=== PATIENT | male | born 1960 | race Caucasian/White ===

== ENCOUNTER → 2020-12-14 08:54 | Outpatient (CLI) | payer OTHER, SELFPAY ==
[2020-12-14 10:23] LABS: Alanine Aminotransferase 23 IU/L (<50); Albumin 4.3 g/dL (3.5-5.0); Albumin Globulin Ratio 1.4 (1.0-2.8); Alkaline Phosphatase 69 U/L (38-126); Aspartate Aminotransferase 29 IU/L (17-59); Bilirubin Total 0.6 mg/dL (0.2-1.3); Blood Urea Nitrogen 16 mg/dL (9-20); C-Reactive Protein Quant < 0.5 mg/dL (<1.0); Calcium 9.1 mg/dL (8.4-10.2); Carbon Dioxide 27 mmol/L (22-32); Chloride 102 mmol/L (98-107); Cholesterol 213 mg/dL (140-199); Estimated Glomerular Filt Rate > 60.0 mL/min (>60); Globulin 3.1 g/dL (1.7-4.1); Glucose 97 mg/dL (80-110); HDL Cholesterol 28 mg/dL (40-60); HEMOLYSIS < 15 (0-50); Potassium 4.1 mmol/L (3.4-5.1); Sodium 136 mmol/L (137-145); Total Protein 7.4 g/dL (6.3-8.2); Triglycerides 451 mg/dL (35-150)
[2020-12-14 10:36] LABS: Vitamin D 25 Hydroxy (D3) 28.4 ng/mL (30.0-100.0)
[2020-12-14 10:49] LABS: Prostate Specific Antigen Scrn 1.03 ng/mL (0.1-4.0)
[2020-12-14 11:31] LABS: Erythrocyte Sedimentation Rate 11 MM/HR (0-15)
== END ==
PROVIDERS: PCP Internal Medicine; Referring Provider Internal Medicine; Visit Provider Internal Medicine
DX: I10 Essential (primary) hypertension (principal); M25.50 Pain in unspecified joint; Z13.1 Encounter for screening for diabetes mellitus; Z13.220 Encounter for screening for lipoid disorders; E55.9 Vitamin D deficiency, unspecified; Z12.5 Encounter for screening for malignant neoplasm of prostate
CPT/HCPCS: 36415; 80053; 80061; 82306; 85651; 86140; G0103

== ENCOUNTER → 2021-03-17 10:25 | Outpatient (CLI) | payer OTHER, SELFPAY | PROVIDERS: PCP Internal Medicine; Referring Provider Physician Assistant; Visit Provider Physician Assistant | DX: L08.9 Local infection of the skin and subcutaneous tissue, unspecified (principal); T14.8XXA Other injury of unspecified body region, initial encounter | CPT/HCPCS: 87070; 87075; 87077; 87147; 87186; 87205 ==

== ENCOUNTER 2021-04-08 10:15 | Emergency (ER) | payer OTHER, SELFPAY ==
[2021-04-08 11:06] VITALS: BP 146/88; PULSE 69; RESP 21; TEMP 36.6; O2SAT 96; BMI 31.5
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
--- NOTE | 2021-04-08 12:35 | DI.RAD.S_ITS ---
PROCEDURE: XR FOOT RT MIN 3V INDICATIONS: swelling redness 1st metatarsal joint, prior sheridan infx TECHNIQUE: 3 views of the foot were acquired. COMPARISON: None. FINDINGS: Bones: No fractures or dislocations. No suspicious bony lesions. Mild degenerative arthritis at the 1st MTP joint. No plain film evidence of osteomyelitis. Soft tissues: No tibiotalar joint effusion. Achilles tendon appears normal. 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 No evidence of acute bony abnormality of the right foot. Dictated by: Fernie German M.D. on 04/08/2021 at 12:11 Approved by: Fernie German M.D. on 04/08/2021 at 12:12
[2021-04-08 12:57] LABS: Add Manual Diff / Slide Review NO; Basophils Absolute Auto 100 /uL (0-100); Basophils Percent Auto 1.2 % (0-2); Eosinophils Absolute Auto 300 /uL (0-450); Eosinophils Percent Auto 3.2 % (2-4); Hematocrit 44.4 % (41-53); Hemoglobin 15.6 g/dL (13.5-17.5); Lymphocytes Absolute Auto 1400 /uL (1100-4500); Lymphocytes Percent Auto 17.5 % (25-40); Mean Corpuscular HGB Conc 35.1 % (30-36); Mean Corpuscular Hemoglobin 33.5 PG (26-34); Mean Corpuscular Volume 95.4 fL (80-100); Monocytes Absolute Auto 300 /uL (0-900); Monocytes Percent Auto 3.2 % (3-14); Neutrophils Absolute Auto 6200 /uL (1500-7000); Neutrophils Percent Auto 74.9 % (50-75); Platelet Count 150 X10^3/uL (150-400); Red Blood Cell Count 4.65 X10^6/uL (4.5-5.9); Red Cell Distribution Width 13.1 % (11.6-14.8); White Blood Cell Count 8.3 X10^3/uL (4.5-11.0)
[2021-04-08 13:08] LABS: Uric Acid 9.2 mg/dL (3.5-8.5)
[2021-04-08 13:10] LABS: BUN Creatinine Ratio 19.1 (6-22); Blood Urea Nitrogen 18 mg/dL (9-20); C-Reactive Protein Quant 0.5 mg/dL (<1.0); Calcium 9.7 mg/dL (8.4-10.2); Carbon Dioxide 26 mmol/L (22-32); Chloride 103 mmol/L (98-107); Estimated Glomerular Filt Rate > 60.0 mL/min (>60); Glucose 79 mg/dL (80-110); HEMOLYSIS < 15 (0-50); Potassium 4.4 mmol/L (3.4-5.1); Sodium 138 mmol/L (137-145)
[2021-04-08 13:20] LABS: Erythrocyte Sedimentation Rate 18 MM/HR (0-15)
[2021-04-08 13:24] LABS: Procalcitonin 0.07 ng/mL (<0.5)
[2021-04-08 13:38] VITALS: BP 135/79; PULSE 63; RESP 14; O2SAT 98
[2021-04-08] MEDS: predniSONE 20 MG TABLET 80 MG PO (13:52)
== END 2021-04-08 13:47 | disposition home or self-care (01) ==
PROVIDERS: Emergency Provider Emergency Medicine; PCP Internal Medicine
DX: M10.9 Gout, unspecified (principal)
CPT/HCPCS: 36415; 73630; 80048; 84145; 84550; 85025; 85651; 86140; 99283; 99284

== ENCOUNTER → 2023-10-03 08:05 | Outpatient (CLI) | payer OTHER, SELFPAY ==
[2023-10-03 09:43] LABS: Alanine Aminotransferase 44 IU/L (<50); Albumin 4.4 g/dL (3.5-5.0); Albumin Globulin Ratio 1.4 (1.0-2.8); Alkaline Phosphatase 57 U/L (38-126); Aspartate Aminotransferase 49 IU/L (17-59); BUN Creatinine Ratio 14.6 (6-22); Blood Urea Nitrogen 14 mg/dL (9-20); Calcium 9.6 mg/dL (8.4-10.2); Carbon Dioxide 21 mmol/L (22-32); Chloride 101 mmol/L (98-107); Cholesterol 224 mg/dL (140-199); Estimated Glomerular Filt Rate > 60 mL/min (>60); Globulin 3.2 g/dL (1.7-4.1); Glucose 116 mg/dL (80-110); HDL Cholesterol 31 mg/dL (40-60); Potassium 4.1 mmol/L (3.4-5.1); Sodium 137 mmol/L (137-145); Total Protein 7.6 g/dL (6.3-8.2); Triglycerides 441 mg/dL (35-150)
[2023-10-03 09:49] LABS: HEMOLYSIS 17 (0-50)
[2023-10-03 10:14] LABS: TSH w/ Reflex to FT4 2.48 uIU/mL (0.47-4.68)
[2023-10-03 15:56] LABS: Prostate Specific Antigen Scrn 0.941 ng/mL (0.1-4.0)
[2023-10-03 16:42] LABS: LDL Cholesterol Direct 128 mg/dL (<100)
== END ==
PROVIDERS: PCP Internal Medicine; Referring Provider Internal Medicine; Visit Provider Internal Medicine
DX: I10 Essential (primary) hypertension (principal); E78.1 Pure hyperglyceridemia; Z12.5 Encounter for screening for malignant neoplasm of prostate; M1A.9XX0 Chronic gout, unspecified, without tophus (tophi)
CPT/HCPCS: 36415; 80053; 80061; 83721; 84443; 84550; G0103

== ENCOUNTER → 2025-03-25 08:05 | Outpatient (CLI) | payer SELFPAY ==
[2025-03-25 09:24] LABS: Hemoglobin A1C% w Est Avg Glu 7.1 % (4.0-6.0)
[2025-03-25 09:36] LABS: Alanine Aminotransferase 37 IU/L (<50); Albumin 4.6 g/dL (3.5-5.0); Albumin Globulin Ratio 1.8 (1.0-2.8); Alkaline Phosphatase 65 U/L (38-126); Aspartate Aminotransferase 43 IU/L (17-59); BUN Creatinine Ratio 16.3 (6-22); Bilirubin Total 0.7 mg/dL (0.2-1.3); Blood Urea Nitrogen 13 mg/dL (9-20); Calcium 9.2 mg/dL (8.4-10.2); Carbon Dioxide 22 mmol/L (22-32); Chloride 103 mmol/L (98-107); Cholesterol 164 mg/dL (140-199); Estimated Glomerular Filt Rate > 60 mL/min (>60); Globulin 2.5 g/dL (1.7-4.1); Glucose 154 mg/dL (70-99); HDL Cholesterol 31 mg/dL (40-60); HEMOLYSIS < 15 (0-50); LDL Cholesterol Calculated 67 mg/dL (<100); Potassium 4.3 mmol/L (3.4-5.1); Sodium 137 mmol/L (137-145); Total Protein 7.1 g/dL (6.3-8.2); Triglycerides 329 mg/dL (35-150); Uric Acid 4.1 mg/dL (3.5-8.5)
[2025-03-25 09:47] LABS: LDL Cholesterol Direct 80 mg/dL (<100)
== END ==
PROVIDERS: PCP Internal Medicine; Referring Provider Internal Medicine; Visit Provider Internal Medicine
DX: R73.9 Hyperglycemia, unspecified (principal); M1A.9XX0 Chronic gout, unspecified, without tophus (tophi); E78.1 Pure hyperglyceridemia; I10 Essential (primary) hypertension
CPT/HCPCS: 36415; 80053; 80061; 83036; 83721; 84550

== ENCOUNTER 2025-07-01 18:56 | Emergency (ER) | payer OTHER, MEDICARE, SELFPAY ==
[2025-07-01] VITALS (25 sets, daily range): BP systolic 142–210; BP diastolic 83–111; PULSE 59–75; RESP 16–25; TEMP 36.6; O2SAT 92–99; BMI 31.5
--- NOTE | 2025-07-01 19:14 | DI.CT.S_ITS ---
PROCEDURE: CT HEAD/BRAIN WO CON INDICATIONS: disoriented/unsteady TIA sx TECHNIQUE: Noncontrast 4.5 mm thick angled axial sections acquired from the foramen magnum to the vertex, with coronal and sagittal reformats. For radiation dose reduction, the following was used: automated exposure control, adjustment of mA and/or kV according to patient size. COMPARISON: [facility], CT, CT ANGIO HEAD AND NECK, 07/01/2025, 19:54. FINDINGS: Image quality: Diagnostic. CSF spaces: Basal cisterns are patent. No extra-axial fluid collections. Ventricles are normal in size and shape. Brain: No midline shift. No intracranial mass effect or hemorrhage. Lew- white matter interface is normal. Skull and face: Calvarium and visualized facial bones are intact, without suspicious lesions. Sinuses: Visualized sinuses and mastoids are clear. IMPRESSION: No acute intracranial pathology. Dictated by: Angeles Ring M.D. on 07/01/2025 at 20:33 Approved by: Angeles Ring M.D. on 07/01/2025 at 20:33
--- NOTE | 2025-07-01 19:14 | DI.CT.S_ITS ---
PROCEDURE: CT ANGIO HEAD AND NECK INDICATIONS: disoriented/unsteady with resolution TECHNIQUE: After the administration of intravenous contrast, 1 mm thick sections acquired from the aortic arch through the [place] of [place]. 3-dimensional ejvhpmn-dhrcnjyuj-fkyjrhbnek (MIP) and/or volume rendering reformats were acquired of the central intracranial vasculature and neck separately. For radiation dose reduction, the following was used: automated exposure control, adjustment of mA and/or kV according to patient size. COMPARISON: [facility], CT, CT HEAD/BRAIN WO [facility], 07/01/2025, 19:54. FINDINGS: Image quality: Diagnostic. Cerebral CT Angiogram: Internal carotid arteries: No acute findings. Intracranial ICA are patent with no significant stenosis. No occlusion. No aneurysm. Anterior cerebral arteries: Unremarkable. No significant stenosis. No occlusion. No aneurysm. Middle cerebral arteries: Unremarkable. No significant stenosis. No occlusion. No aneurysm. Posterior cerebral arteries: Unremarkable. No significant stenosis. No occlusion. No aneurysm. Basilar artery: Unremarkable. No significant stenosis. No occlusion. No aneurysm. Vertebral arteries: Slight left vertebral artery dominance. Dural venous sinuses: Unremarkable given phase of enhancement. Other: Arterial phase appearance of the brain parenchyma is unremarkable. Neck CT Angiogram: Internal carotid arteries: There is greater than 90% narrowing within the origin and short segment proximal internal carotid artery measuring 1.5 cm appearing secondary to luminal thrombus. No priors are available for comparison. Distal reconstitution is present. Common carotid arteries: Unremarkable. No significant stenosis. No dissection or occlusion. External carotid arteries: Unremarkable. No occlusion. Vertebral arteries: Unremarkable. No significant stenosis. No dissection or occlusion. Aortic Arch and Mediastinum: Partially visualized aortic arch unremarkable without evidence of aneurysm. Origins of the great vessels unremarkable. Other: Arterial phase soft tissues of the neck and chest are unremarkable. There is appearance of filling defect within the left internal jugular vein approximately 5 cm from the origin. 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 No priors are available for comparison. Filling defect within the left internal jugular vein as above. While this can be secondary to injection timing particularly with venous structures, venous thrombosis cannot be excluded. Ultrasound may be helpful for additional evaluation. Any quantitative measurements of stenosis were performed using NASCET criteria. Dictated by: Agneles Ring M.D. on 07/01/2025 at 20:24 Approved by: Angeles Ring M.D. on 07/01/2025 at 20:29
--- NOTE | 2025-07-01 19:14 | DI.RAD.S_ITS ---
PROCEDURE: XR CHEST 1V INDICATIONS: Possible stroke TECHNIQUE: One view of the chest was acquired. COMPARISON: None. FINDINGS AND IMPRESSION: Low lung volumes. No airspace consolidation or pleural effusion on this single view study. Borderline cardiomegaly. Mild degenerative osseous changes. Dictated by: Tyler Montes M.D. on 07/01/2025 at 20:18 Approved by: Tyler Montes M.D. on 07/01/2025 at 20:19
--- NOTE | 2025-07-01 19:15 | EKG_ITS ---
[place] [id number] [place] [address] Test Date: 2025-07-01 Pat Name: Yuniel Cast Department: Room: Gender: Male [employer] Teacher: NATALY : 1960 Requested By: Order Number: [id number] Reading MD: Dada Uribe MD Measurements Intervals Gray Rate: 71 P: AL: 166 QRS: 10 QRSD: 76 T: 31 QT: 368 QTc: 399 Interpretive Statements Sinus rhythm with premature supraventricular complexes Nonspecific ST and T wave abnormality Electronically Signed On 07-04-2025 7:45:59 PDT by Dada Uribe MD
[2025-07-01 19:21] LABS: Add Manual Diff / Slide Review NO; Hematocrit 46.1 % (41-53); Hemoglobin 16.2 g/dL (13.5-17.5); Lymphocytes Absolute Auto 2300 /uL (1100-4500); Mean Corpuscular HGB Conc 35.2 % (30-36); Mean Corpuscular Hemoglobin 33.5 PG (26-34); Mean Corpuscular Volume 95.1 fL (80-100); Platelet Count 150 X10^3/uL (150-400)
[2025-07-01 19:27] LABS: INR 1.1 (0.9-1.3); Prothrombin Time 12.3 SECONDS (9.4-12.5)
[2025-07-01 19:29] LABS: PTT Partial Thromboplastin Tim 32 SECONDS (25.1-36.5)
[2025-07-01 19:32] LABS: Alanine Aminotransferase 40 IU/L (<50); Albumin 4.8 g/dL (3.5-5.0); Albumin Globulin Ratio 1.5 (1.0-2.8); Alkaline Phosphatase 85 U/L (38-126); Blood Urea Nitrogen 13 mg/dL (9-20); Calcium 9.3 mg/dL (8.4-10.2); Carbon Dioxide 25 mmol/L (22-32); Chloride 102 mmol/L (98-107); Creatine Kinase 77 U/L (55-170); Estimated Glomerular Filt Rate > 60 mL/min (>60); Globulin 3.3 g/dL (1.7-4.1); Glucose 244 mg/dL (70-99); HEMOLYSIS 21 (0-50); Potassium 4.1 mmol/L (3.4-5.1); Sodium 138 mmol/L (137-145); Total Protein 8.1 g/dL (6.3-8.2)
--- NOTE | 2025-07-01 19:34 | ED.NEUROSD ---
HPI - Neuro Symptoms/Deficit <Josef Hernandez MD - Last Filed: 07/13/25 08:48> General Chief Complaint: Neuro Symptoms/Deficit Stated Complaint: moment of confusion, blank look, rt leg weak Time Seen by Provider: 07/01/25 19:18 History of Present Illness HPI Narrative: Last well known 6:05 p.m.. Patient had sudden onset of slurred speech dizzy confusion and left leg weakness that has resolved. Patient has history hypertension hyperlipidemia prediabetic. Family history mother with stroke. Blood pressure noted. No headache at this time. Symptoms have resolved. NIH score is 0. Fast exam is negative On Anticoagulants: No Related Data Home Medications ?Medication ?Instructions ?Recorded ?Confirmed colchicine 0.6 mg capsule 0.6 mg PO DAILY PRN Gout flare, 02/10/24 07/12/25 d/c as flare resolves acetaminophen 325 mg capsule 975 mg PO Q8H PRN 07/07/25 07/12/25 aspirin 81 mg chewable tablet 81 mg PO DAILY 07/07/25 07/12/25 atorvastatin 40 mg tablet 40 mg PO BEDTIME 07/07/25 07/12/25 clopidogrel 75 mg tablet 75 mg PO DAILY 07/07/25 07/12/25 ondansetron HCl 4 mg tablet 4 mg PO Q8H PRN 07/07/25 07/12/25 Previous Rx's ?Medication ?Instructions ?Recorded allopurinol 300 mg tablet 300 mg PO DAILY #90 tabs 09/14/24 metoprolol succinate 50 mg 50 mg PO DAILY #90 tabs 04/05/25 tablet,extended release 24 hr chlorthalidone 25 mg tablet 25 mg PO DAILY #90 tabs 07/12/25 Allergies Allergy/AdvReac Type Severity Reaction Status Date / Time lisinopril AdvReac Intermediate Cough Verified 07/12/25 14:14 valsartan AdvReac Intermediate Diarrhea Verified 07/12/25 14:14 Review of Systems <Josef Hernandez MD - Last Filed: 07/13/25 08:48> Review of Systems Narrative: GENERAL: Negative chills, fatigue, malaise, fever, sweats. HEENT: Negative sinus pain, ear pain, sore throat RESPIRATORY: Negative dyspnea, cough CARDIOVASCULAR: Negative chest pain, palpitations GASTROINTESTINAL: Negative vomiting, nausea, abdominal pain : Negative dysuria, frequency, hematuria MUSCULOSKELETAL: Negative muscle or bony pain SKIN: Negative rash, skin lesions NEUROLOGIC: Negative upper extremity weakness, numbness positive slurred speech positive left leg weakness ROS Unobtainable: All systems reviewed & are unremarkable except as noted in HPI and below Hematologic/Lymphatic On Anticoagulants: No Patient History <Josef Hernandez MD - Last Filed: 07/13/25 08:48> Medical History (Updated 07/12/25 @ 14:20 by Dada Uribe MD) Stroke (~06/2025) Type 2 diabetes mellitus Gout, chronic Hypertriglyceridemia Tendonitis (~2019) Mumps Measles Chicken pox Essential (primary) hypertension (~2011) Surgical History (Updated 07/12/25 @ 14:20 by Dada Uribe MD) History of left-sided carotid endarterectomy (~06/2025) Anesthesia H/O parotidectomy (~1991) S/P tonsillectomy S/P Achilles tendon repair (~2003) Family History Father Heart disease Congestive heart failure Mother No problems noted. alcohol intake frequency: 0-2 drinks per day Exam <Josef Hernandez MD - Last Filed: 07/13/25 08:48> Narrative Exam Narrative: GENERAL: in no distress, not toxic not dyspneic HEAD: Normocephalic. EYES: Pupils equal round ENT: Mucous membranes moist. NECK: Trachea midline. CARDIOVASCULAR: Regular rate and rhythm RESPIRATORY: Clear to auscultation. Breath sounds equal bilaterally. No wheezes, rales, or rhonchi. GASTROINTESTINAL: Abdomen soft, non-tender EXTREMITIES: No gross deformities. BACK: No flank tenderness. NEURO: AOx4. 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 SKIN: Warm and dry PSYCH: Not anxious, is cooperative Initial Vital Signs Initial Vital Signs: Vital Signs Pulse Rate 71 07/01/25 19:04 Blood Pressure 204/102 H 07/01/25 19:04 Pulse Oximetry 99 07/01/25 19:04 <Jemal Morgan MD - Last Filed: 07/02/25 02:49> Initial Vital Signs Initial Vital Signs: Vital Signs Pulse Rate 71 07/01/25 19:04 Blood Pressure 204/102 H 07/01/25 19:04 Pulse Oximetry 99 07/01/25 19:04 Scores <Josef Hernandez MD - Last Filed: 07/13/25 08:48> NIH Stroke Scale Level of Conciousness: Alert, keenly responsive Ask month/age: Answers both questions correctly. Open/close eyes, close hand: Performs both tasks correctly Best gaze horizontal: Normal Visual vaca: No visual loss Facial palsy: Normal symetrical movement Left arm drift: No drift for full 10 sec Right arm drift: No drift for full 10 sec Left leg drift: No drift for full 5 sec Right leg drift: No drift for full 5 sec Limb ataxia: Absent Sensory on face/arms/legs: Normal, no sensory loss Best language: No aphasia, normal Dysarthria: Normal Extinction or inattention: No abnormality Total NIH Stroke scale score: 0 <Jemal Morgan MD - Last Filed: 07/02/25 02:49> NIH Stroke Scale Total NIH Stroke scale score: 0 Course <Josef Hernandez MD - Last Filed: 07/13/25 08:48> Orders Ordered: Discontinued Medications Sodium Chloride (Normal Saline 0.9%) 500 mls @ 1,000 mls/hr IV BOLUS ONE Stop: 07/01/25 21:56 Last Infusion: 07/01/25 22:04 Dose: Infused Documented By: Admin: 07/01/25 21:32 Dose: 1,000 mls/hr Documented By: JAD Heparin Sodium/Dextrose (Heparin Drip) 25,000 unit in 500 mls @ 35.924 mls/hr IV CONT ZOË; Protocol Last Titration: 07/02/25 02:38 Dose: Infused Documented By: MAGGIE Co-signed By: CHERELLE Admin: 07/02/25 00:07 Dose: 18 units/kg/hr, 35.924 mls/hr Documented By: OSVALDO Co-signed By: MAGGIE Metoprolol Tartrate (Metoprolol Ir 25 Mg Tablet) 50 mg PO NOW ONE Stop: 07/01/25 22:37 Last Admin: 07/01/25 22:43 Dose: 50 mg Documented By: JAD Ondansetron HCl (Ondansetron 4 Mg/2 Ml Inj) 4 mg IV NOW PRN PRN Reason: Nausea And Vomiting Ondansetron HCl (Ondansetron 4 Mg Odt) 4 mg PO NOW PRN PRN Reason: Nausea And Vomiting Vital Signs Vital signs: Vital Signs - 8 hr 07/01/25 19:04 07/01/25 19:04 07/01/25 19:10 Temperature 97.8 F Pulse Rate 71 75 Respiratory Rate 16 Blood Pressure 204/102 H 204/102 H Pulse Oximetry 99 98 Oxygen Delivery Method Room Air 07/01/25 19:11 07/01/25 19:11 07/01/25 19:20 Temperature Pulse Rate 74 74 Respiratory Rate 21 Blood Pressure 210/111 H Pulse Oximetry 98 98 Oxygen Delivery Method 07/01/25 19:20 07/01/25 19:30 07/01/25 19:30 Temperature Pulse Rate 71 Respiratory Rate Blood Pressure 201/107 H 190/92 H Pulse Oximetry 92 Oxygen Delivery Method Room Air 07/01/25 19:49 07/01/25 19:49 07/01/25 19:50 Temperature Pulse Rate 68 69 Respiratory Rate 22 23 Blood Pressure 182/92 H Pulse Oximetry 95 96 Oxygen Delivery Method Room Air 07/01/25 19:50 07/01/25 20:04 07/01/25 20:30 Temperature Pulse Rate 70 61 Respiratory Rate 24 20 Blood Pressure 178/95 H Pulse Oximetry 97 95 Oxygen Delivery Method Room Air 07/01/25 20:59 07/01/25 20:59 07/01/25 21:00 Temperature Pulse Rate 61 60 Respiratory Rate 20 20 Blood Pressure 163/86 H Pulse Oximetry 96 96 Oxygen Delivery Method 07/01/25 21:00 07/01/25 21:15 07/01/25 21:15 Temperature Pulse Rate 62 Respiratory Rate 19 Blood Pressure 144/87 H 152/90 H Pulse Oximetry 97 Oxygen Delivery Method Room Air 07/01/25 21:30 07/01/25 21:30 07/01/25 21:45 Temperature Pulse Rate 59 L 60 Respiratory Rate 19 21 Blood Pressure 142/84 H Pulse Oximetry 96 97 Oxygen Delivery Method Room Air 07/01/25 21:45 07/01/25 22:30 07/01/25 22:31 Temperature Pulse Rate 69 Respiratory Rate 25 H Blood Pressure 163/83 H 206/101 H Pulse Oximetry 96 Oxygen Delivery Method 07/01/25 22:31 07/01/25 22:33 07/01/25 22:33 Temperature Pulse Rate 74 73 Respiratory Rate 24 22 Blood Pressure 209/109 H Pulse Oximetry 97 97 Oxygen Delivery Method Room Air 07/01/25 22:40 07/01/25 22:40 07/01/25 22:50 Temperature Pulse Rate 66 Respiratory Rate 21 Blood Pressure 207/106 H 210/105 H Pulse Oximetry 96 Oxygen Delivery Method 07/01/25 22:50 07/01/25 23:00 07/01/25 23:00 Temperature Pulse Rate 67 66 Respiratory Rate 21 20 Blood Pressure 194/99 H Pulse Oximetry 96 95 Oxygen Delivery Method Room Air 07/01/25 23:10 07/01/25 23:10 07/01/25 23:20 Temperature Pulse Rate 62 Respiratory Rate 19 Blood Pressure 193/99 H 194/100 H Pulse Oximetry 95 Oxygen Delivery Method 07/01/25 23:20 07/01/25 23:30 07/01/25 23:30 Temperature Pulse Rate 62 62 Respiratory Rate 19 19 Blood Pressure 176/95 H Pulse Oximetry 95 95 Oxygen Delivery Method Room Air 07/01/25 23:40 07/01/25 23:40 07/01/25 23:50 Temperature Pulse Rate 60 Respiratory Rate 18 Blood Pressure 163/92 H 171/98 H Pulse Oximetry 95 Oxygen Delivery Method 07/01/25 23:50 07/02/25 00:00 07/02/25 00:00 Temperature Pulse Rate 59 L 59 L Respiratory Rate 19 18 Blood Pressure 163/93 H Pulse Oximetry 95 97 Oxygen Delivery Method Room Air 07/02/25 00:10 07/02/25 00:10 07/02/25 00:20 Temperature Pulse Rate 57 L 58 L Respiratory Rate 20 19 Blood Pressure 166/98 H Pulse Oximetry 95 94 Oxygen Delivery Method Room Air 07/02/25 00:20 07/02/25 00:30 07/02/25 00:30 Temperature Pulse Rate 56 L Respiratory Rate 18 Blood Pressure 160/97 H 157/93 H Pulse Oximetry 95 Oxygen Delivery Method 07/02/25 00:40 07/02/25 00:40 07/02/25 00:50 Temperature Pulse Rate 55 L 56 L Respiratory Rate 16 18 Blood Pressure 155/90 H Pulse Oximetry 92 96 Oxygen Delivery Method 07/02/25 00:50 07/02/25 01:00 07/02/25 01:00 Temperature Pulse Rate 54 L Respiratory Rate 17 Blood Pressure 156/89 H 148/87 H Pulse Oximetry 95 Oxygen Delivery Method 07/02/25 01:11 07/02/25 01:11 07/02/25 01:20 Temperature Pulse Rate 60 56 L Respiratory Rate 20 18 Blood Pressure 172/98 H Pulse Oximetry 95 95 Oxygen Delivery Method 07/02/25 01:20 07/02/25 01:30 07/02/25 01:30 Temperature Pulse Rate 58 L Respiratory Rate 17 Blood Pressure 169/94 H 169/85 H Pulse Oximetry 95 Oxygen Delivery Method 07/02/25 01:40 07/02/25 01:40 07/02/25 01:50 Temperature Pulse Rate 58 L Respiratory Rate 18 Blood Pressure 162/90 H 162/92 H Pulse Oximetry 95 Oxygen Delivery Method Room Air 07/02/25 01:50 07/02/25 02:00 07/02/25 02:00 Temperature Pulse Rate 56 L 55 L Respiratory Rate 17 17 Blood Pressure 163/89 H Pulse Oximetry 93 95 Oxygen Delivery Method 07/02/25 02:10 07/02/25 02:10 Temperature Pulse Rate 55 L Respiratory Rate 17 Blood Pressure 156/86 H Pulse Oximetry 93 Oxygen Delivery Method Room Air <Jemal Morgan MD - Last Filed: 07/02/25 02:49> Orders Ordered: Discontinued Medications Sodium Chloride (Normal Saline 0.9%) 500 mls @ 1,000 mls/hr IV BOLUS ONE Stop: 07/01/25 21:56 Last Infusion: 07/01/25 22:04 Dose: Infused Documented By: Admin: 07/01/25 21:32 Dose: 1,000 mls/hr Documented By: JAD Heparin Sodium/Dextrose (Heparin Drip) 25,000 unit in 500 mls @ 35.924 mls/hr IV CONT ZOË; Protocol Last Titration: 07/02/25 02:38 Dose: Infused Documented By: MAGGIE Co-signed By: SGF Admin: 07/02/25 00:07 Dose: 18 units/kg/hr, 35.924 mls/hr Documented By: OSVALDO Co-signed By: MAGGIE Metoprolol Tartrate (Metoprolol Ir 25 Mg Tablet) 50 mg PO NOW ONE Stop: 07/01/25 22:37 Last Admin: 07/01/25 22:43 Dose: 50 mg Documented By: JAD Ondansetron HCl (Ondansetron 4 Mg/2 Ml Inj) 4 mg IV NOW PRN PRN Reason: Nausea And Vomiting Ondansetron HCl (Ondansetron 4 Mg Odt) 4 mg PO NOW PRN PRN Reason: Nausea And Vomiting Vital Signs Vital signs: Vital Signs - 8 hr 07/01/25 19:04 07/01/25 19:04 07/01/25 19:10 Temperature 97.8 F Pulse Rate 71 75 Respiratory Rate 16 Blood Pressure 204/102 H 204/102 H Pulse Oximetry 99 98 Oxygen Delivery Method Room Air 07/01/25 19:11 07/01/25 19:11 07/01/25 19:20 Temperature Pulse Rate 74 74 Respiratory Rate 21 Blood Pressure 210/111 H Pulse Oximetry 98 98 Oxygen Delivery Method 07/01/25 19:20 07/01/25 19:30 07/01/25 19:30 Temperature Pulse Rate 71 Respiratory Rate Blood Pressure 201/107 H 190/92 H Pulse Oximetry 92 Oxygen Delivery Method Room Air 07/01/25 19:49 07/01/25 19:49 07/01/25 19:50 Temperature Pulse Rate 68 69 Respiratory Rate 22 23 Blood Pressure 182/92 H Pulse Oximetry 95 96 Oxygen Delivery Method Room Air 07/01/25 19:50 07/01/25 20:04 07/01/25 20:30 Temperature Pulse Rate 70 61 Respiratory Rate 24 20 Blood Pressure 178/95 H Pulse Oximetry 97 95 Oxygen Delivery Method Room Air 07/01/25 20:59 07/01/25 20:59 07/01/25 21:00 Temperature Pulse Rate 61 60 Respiratory Rate 20 20 Blood Pressure 163/86 H Pulse Oximetry 96 96 Oxygen Delivery Method 07/01/25 21:00 07/01/25 21:15 07/01/25 21:15 Temperature Pulse Rate 62 Respiratory Rate 19 Blood Pressure 144/87 H 152/90 H Pulse Oximetry 97 Oxygen Delivery Method Room Air 07/01/25 21:30 07/01/25 21:30 07/01/25 21:45 Temperature Pulse Rate 59 L 60 Respiratory Rate 19 21 Blood Pressure 142/84 H Pulse Oximetry 96 97 Oxygen Delivery Method Room Air 07/01/25 21:45 07/01/25 22:30 07/01/25 22:31 Temperature Pulse Rate 69 Respiratory Rate 25 H Blood Pressure 163/83 H 206/101 H Pulse Oximetry 96 Oxygen Delivery Method 07/01/25 22:31 07/01/25 22:33 07/01/25 22:33 Temperature Pulse Rate 74 73 Respiratory Rate 24 22 Blood Pressure 209/109 H Pulse Oximetry 97 97 Oxygen Delivery Method Room Air 07/01/25 22:40 07/01/25 22:40 07/01/25 22:50 Temperature Pulse Rate 66 Respiratory Rate 21 Blood Pressure 207/106 H 210/105 H Pulse Oximetry 96 Oxygen Delivery Method 07/01/25 22:50 07/01/25 23:00 07/01/25 23:00 Temperature Pulse Rate 67 66 Respiratory Rate 21 20 Blood Pressure 194/99 H Pulse Oximetry 96 95 Oxygen Delivery Method Room Air 07/01/25 23:10 07/01/25 23:10 07/01/25 23:20 Temperature Pulse Rate 62 Respiratory Rate 19 Blood Pressure 193/99 H 194/100 H Pulse Oximetry 95 Oxygen Delivery Method 07/01/25 23:20 07/01/25 23:30 07/01/25 23:30 Temperature Pulse Rate 62 62 Respiratory Rate 19 19 Blood Pressure 176/95 H Pulse Oximetry 95 95 Oxygen Delivery Method Room Air 07/01/25 23:40 07/01/25 23:40 07/01/25 23:50 Temperature Pulse Rate 60 Respiratory Rate 18 Blood Pressure 163/92 H 171/98 H Pulse Oximetry 95 Oxygen Delivery Method 07/01/25 23:50 07/02/25 00:00 07/02/25 00:00 Temperature Pulse Rate 59 L 59 L Respiratory Rate 19 18 Blood Pressure 163/93 H Pulse Oximetry 95 97 Oxygen Delivery Method Room Air 07/02/25 00:10 07/02/25 00:10 07/02/25 00:20 Temperature Pulse Rate 57 L 58 L Respiratory Rate 20 19 Blood Pressure 166/98 H Pulse Oximetry 95 94 Oxygen Delivery Method Room Air 07/02/25 00:20 07/02/25 00:30 07/02/25 00:30 Temperature Pulse Rate 56 L Respiratory Rate 18 Blood Pressure 160/97 H 157/93 H Pulse Oximetry 95 Oxygen Delivery Method 07/02/25 00:40 07/02/25 00:40 07/02/25 00:50 Temperature Pulse Rate 55 L 56 L Respiratory Rate 16 18 Blood Pressure 155/90 H Pulse Oximetry 92 96 Oxygen Delivery Method 07/02/25 00:50 07/02/25 01:00 07/02/25 01:00 Temperature Pulse Rate 54 L Respiratory Rate 17 Blood Pressure 156/89 H 148/87 H Pulse Oximetry 95 Oxygen Delivery Method 07/02/25 01:11 07/02/25 01:11 07/02/25 01:20 Temperature Pulse Rate 60 56 L Respiratory Rate 20 18 Blood Pressure 172/98 H Pulse Oximetry 95 95 Oxygen Delivery Method 07/02/25 01:20 07/02/25 01:30 07/02/25 01:30 Temperature Pulse Rate 58 L Respiratory Rate 17 Blood Pressure 169/94 H 169/85 H Pulse Oximetry 95 Oxygen Delivery Method 07/02/25 01:40 07/02/25 01:40 07/02/25 01:50 Temperature Pulse Rate 58 L Respiratory Rate 18 Blood Pressure 162/90 H 162/92 H Pulse Oximetry 95 Oxygen Delivery Method Room Air 07/02/25 01:50 07/02/25 02:00 07/02/25 02:00 Temperature Pulse Rate 56 L 55 L Respiratory Rate 17 17 Blood Pressure 163/89 H Pulse Oximetry 93 95 Oxygen Delivery Method 07/02/25 02:10 07/02/25 02:10 Temperature Pulse Rate 55 L Respiratory Rate 17 Blood Pressure 156/86 H Pulse Oximetry 93 Oxygen Delivery Method Room Air MDM - Neuro Symptoms/Deficit <Josef Hernandez MD - Last Filed: 07/13/25 08:48> Lab Data 07/01/25 19:12 07/01/25 19:12 Labs: Lab Results 07/01/25 07/01/25 07/01/25 Range/Units 19:06 19:12 20:08 WBC 7.0 (4.5-11.0) X10^3/uL RBC 4.85 (4.5-5.9) X10^6/uL Hgb 16.2 (13.5-17.5) g/dL Hct 46.1 (41-53) % MCV 95.1 (80-100) fL MCH 33.5 (26-34) PG MCHC 35.2 (30-36) % RDW 13.3 (11.6-14.8) % Plt Count 150 (150-400) X10^3/uL Neut % (Auto) 58.3 (50-75) % Lymph % (Auto) 32.8 (25-40) % [place] % (Auto) 6.1 (3-14) % Eos % (Auto) 1.7 L (2-4) % Baso % (Auto) 1.1 (0-2) % Neut # (Auto) 4100 (3231-6510) /uL Lymph # (Auto) 2300 (1517-6409) /uL [place] # (Auto) 400 (0-900) /uL Eos # (Auto) 100 (0-450) /uL Baso # (Auto) 100 (0-100) /uL PT 12.3 (9.4-12.5) SECONDS INR 1.1 (0.9-1.3) APTT 32 (25.1-36.5) SECONDS Sodium 138 (137-145) mmol/L Potassium 4.1 (3.4-5.1) mmol/L Chloride 102 (98-107) mmol/L Carbon Dioxide 25 (22-32) mmol/L BUN 13 (9-20) mg/dL Creatinine 0.85 (0.66-1.25) mg/dL Estimated GFR > 60 (>60) mL/min BUN/Creatinine Ratio 15.3 (6-22) Glucose 244 H (70-99) mg/dL POC Whole Bld Glucose 252 H 262 H (70-99) mg/dL Calcium 9.3 (8.4-10.2) mg/dL Total Bilirubin 0.7 (0.2-1.3) mg/dL AST 53 (17-59) IU/L ALT 40 (<50) IU/L Alkaline Phosphatase 85 (38-126) U/L Total Creatine Kinase 77 (55-170) U/L Troponin I < 0.012 (0.01-0.034) ng/mL Total Protein 8.1 (6.3-8.2) g/dL Albumin 4.8 (3.5-5.0) g/dL Globulin 3.3 (1.7-4.1) g/dL Albumin/Globulin Ratio 1.5 (1.0-2.8) Point of Care Testing Glucose POC 262 Imaging Data CTA - brain/neck: Radiologist's Impression: [address] [address] [address] Scan Report Signed Patient: Yuniel Cast MR#: [id number] : 1960 Acct:[id number] Age/Sex: 64 / M Date of Service: 07/01/25 Loc: ED Accession Number: [id number] Procedure: CT angio head and neck Ordering Provider: Josef Hernandez MD PROCEDURE: CT ANGIO HEAD AND NECK INDICATIONS: disoriented/unsteady with resolution TECHNIQUE: After the administration of intravenous contrast, 1 mm thick sections acquired from the aortic arch through the [place] of [place]. 3-dimensional sdkecxw-vqlljriig-gttorweodx (MIP) and/or volume rendering reformats were acquired of the central intracranial vasculature and neck separately. For radiation dose reduction, the following was used: automated exposure control, adjustment of mA and/or kV according to patient size. COMPARISON: [facility], CT, CT HEAD/BRAIN WO CON, 07/01/2025, 19:54. FINDINGS: Image quality: Diagnostic. Cerebral CT Angiogram: Internal carotid arteries: No acute findings. Intracranial ICA are patent with no significant stenosis. No occlusion. No aneurysm. Anterior cerebral arteries: Unremarkable. No significant stenosis. No occlusion. No aneurysm. Middle cerebral arteries: Unremarkable. No significant stenosis. No occlusion. No aneurysm. Posterior cerebral arteries: Unremarkable. No significant stenosis. No occlusion. No aneurysm. Basilar artery: Unremarkable. No significant stenosis. No occlusion. No aneurysm. Vertebral arteries: Slight left vertebral artery dominance. Dural venous sinuses: Unremarkable given phase of enhancement. Other: Arterial phase appearance of the brain parenchyma is unremarkable. Neck CT Angiogram: Internal carotid arteries: There is greater than 90% narrowing within the origin and short segment proximal internal carotid artery measuring 1.5 cm appearing secondary to luminal thrombus. No priors are available for comparison. Distal reconstitution is present. Common carotid arteries: Unremarkable. No significant stenosis. No dissection or occlusion. External carotid arteries: Unremarkable. No occlusion. Vertebral arteries: Unremarkable. No significant stenosis. No dissection or occlusion. Aortic Arch and Mediastinum: Partially visualized aortic arch unremarkable without evidence of aneurysm. Origins of the great vessels unremarkable. Other: Arterial phase soft tissues of the neck and chest are unremarkable. There is appearance of filling defect within the left internal jugular vein approximately 5 cm from the origin. 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 No priors are available for comparison. Filling defect within the left internal jugular vein as above. While this can be secondary to injection timing particularly with venous structures, venous thrombosis cannot be excluded. Ultrasound may be helpful for additional evaluation. Any quantitative measurements of stenosis were performed using NASCET criteria. Dictated by: Angeles Ring M.D. on 07/01/2025 at 20:24 Approved by: Angeles Ring M.D. on 07/01/2025 at 20:29 CT scan - head: Radiologist's Impression: [place] [address] CT Scan Report Signed Patient: Yuniel Cast MR#: [id number] : 1960 Acct:[id number] Age/Sex: 64 / M Date of Service: 07/01/25 Loc: ED Accession Number: [id number] Procedure: CT head/brain wo con Ordering Provider: Josef Hernandez MD PROCEDURE: CT HEAD/BRAIN WO CON INDICATIONS: disoriented/unsteady TIA sx TECHNIQUE: Noncontrast 4.5 mm thick angled axial sections acquired from the foramen magnum to the vertex, with coronal and sagittal reformats. For radiation dose reduction, the following was used: automated exposure control, adjustment of mA and/or kV according to patient size. COMPARISON: [facility], CT, CT ANGIO HEAD AND NECK, 07/01/2025, 19:54. FINDINGS: Image quality: Diagnostic. CSF spaces: Basal cisterns are patent. No extra-axial fluid collections. Ventricles are normal in size and shape. Brain: No midline shift. No intracranial mass effect or hemorrhage. Lew-white matter interface is normal. Skull and face: Calvarium and visualized facial bones are intact, without suspicious lesions. Sinuses: Visualized sinuses and mastoids are clear. IMPRESSION: No acute intracranial pathology. Dictated by: Angeles Ring M.D. on 07/01/2025 at 20:33 Approved by: Angeles Ring M.D. on 07/01/2025 at 20:33 Chest x-ray: Radiologist's Impression: [address] [address] XRay Report Signed Patient: Yuniel Cast MR#: [id number] : 1960 Acct:[id number] Age/Sex: 64 / M Date of Service: 07/01/25 Loc: ED Accession Number: [id number] Procedure: XR chest 1V Ordering Provider: Josef Hernandez MD PROCEDURE: XR CHEST 1V INDICATIONS: Possible stroke TECHNIQUE: One view of the chest was acquired. COMPARISON: None. FINDINGS AND IMPRESSION: Low lung volumes. No airspace consolidation or pleural effusion on this single view study. Borderline cardiomegaly. Mild degenerative osseous changes. Dictated by: Tyler Montes M.D. on 07/01/2025 at 20:18 Approved by: Tyler Montes M.D. on 07/01/2025 at 20:19 [facility] Narrative Medical decision making narrative: Last well known 6:05 p.m.. Patient had sudden onset of slurred speech dizzy confusion and left leg weakness that has resolved. Patient has history hypertension hyperlipidemia prediabetic. Family history mother with stroke. Blood pressure noted. No headache at this time. Symptoms have resolved. NIH score is 0. Fast exam is negative MDM After history and exam, CT head CT angiogram head and neck EKG CBC CMP troponin Differential considered: Includes but not limited to TIA stroke seizure hypoglycemia Medical records reviewed: No recent visit for this complaint Lab Test results independently reviewed as above. Pertinent findings: WBC 7.0 hemoglobin 16.2 sodium 138 potassium 4.1 BUN 13 creatinine 0.85 glucose 244 troponin less than 0.012 Independently reviewed EKG sinus rhythm rate [address]-elevation or depression Imaging studies independently reviewed: Chest x-ray no acute finding, CT head CT angiogram head and neck no acute finding, however 90% stenosis of the right internal carotid Consultations: 9:26 p.m.. Spoke with [facility] tele stroke dr maravilla, she will review images with her team. And call us back. 10:10 p.m.. [facility] stroke called me back. She would like patient to be transferred to [facility] Emergency Department now. Start low-dose weight based heparin drip without bolus. Keep blood pressure systolic below 180. She states they will consult their vascular team Re-evaluations: 10:00 p.m.. Updated patient and family results and awaiting call back from [facility] tele stroke as they are reviewing CAT scan images for the blockage in the left carotid artery Discussion: Appropriate for transfer for higher level of care needing neurology as well as vascular surgery. Diagnosis: TIA <Jemal Morgan MD - Last Filed: 07/02/25 02:49> Lab Data Labs: Lab Results 07/01/25 07/01/25 07/01/25 Range/Units 19:06 19:12 20:08 WBC 7.0 (4.5-11.0) X10^3/uL RBC 4.85 (4.5-5.9) X10^6/uL Hgb 16.2 (13.5-17.5) g/dL Hct 46.1 (41-53) % MCV 95.1 (80-100) fL MCH 33.5 (26-34) PG MCHC 35.2 (30-36) % RDW 13.3 (11.6-14.8) % Plt Count 150 (150-400) X10^3/uL Neut % (Auto) 58.3 (50-75) % Lymph % (Auto) 32.8 (25-40) % Surry % (Auto) 6.1 (3-14) % Eos % (Auto) 1.7 L (2-4) % Baso % (Auto) 1.1 (0-2) % Neut # (Auto) 4100 (3930-1067) /uL Lymph # (Auto) 2300 (1985-3820) /uL Surry # (Auto) 400 (0-900) /uL Eos # (Auto) 100 (0-450) /uL Baso # (Auto) 100 (0-100) /uL PT 12.3 (9.4-12.5) SECONDS INR 1.1 (0.9-1.3) APTT 32 (25.1-36.5) SECONDS Sodium 138 (137-145) mmol/L Potassium 4.1 (3.4-5.1) mmol/L Chloride 102 (98-107) mmol/L Carbon Dioxide 25 (22-32) mmol/L BUN 13 (9-20) mg/dL Creatinine 0.85 (0.66-1.25) mg/dL Estimated GFR > 60 (>60) mL/min BUN/Creatinine Ratio 15.3 (6-22) Glucose 244 H (70-99) mg/dL POC Whole Bld Glucose 252 H 262 H (70-99) mg/dL Calcium 9.3 (8.4-10.2) mg/dL Total Bilirubin 0.7 (0.2-1.3) mg/dL AST 53 (17-59) IU/L ALT 40 (<50) IU/L Alkaline Phosphatase 85 (38-126) U/L Total Creatine Kinase 77 (55-170) U/L Troponin I < 0.012 (0.01-0.034) ng/mL Total Protein 8.1 (6.3-8.2) g/dL Albumin 4.8 (3.5-5.0) g/dL Globulin 3.3 (1.7-4.1) g/dL Albumin/Globulin Ratio 1.5 (1.0-2.8) Point of Care Testing Glucose POC 262 MDM Narrative Medical decision making narrative: Last well known 6:05 p.m.. Patient had sudden onset of slurred speech dizzy confusion and left leg weakness that has resolved. Patient has history hypertension hyperlipidemia prediabetic. Family history mother with stroke. Blood pressure noted. No headache at this time. Symptoms have resolved. NIH score is 0. Fast exam is negative MDM After history and exam, CT head CT angiogram head and neck EKG CBC CMP troponin Differential considered: Includes but not limited to TIA stroke seizure hypoglycemia Medical records reviewed: No recent visit for this complaint Lab Test results independently reviewed as above. Pertinent findings: WBC 7.0 hemoglobin 16.2 sodium 138 potassium 4.1 BUN 13 creatinine 0.85 glucose 244 troponin less than 0.012 Independently reviewed EKG sinus rhythm rate [address]-elevation or depression Imaging studies independently reviewed: Chest x-ray no acute finding, CT head CT angiogram head and neck no acute finding, however 90% stenosis of the right internal carotid Consultations: 9:26 p.m.. Spoke with [facility] tele stroke dr maravilla, she will review images with her team. And call us back. 10:10 p.m.. [facility] stroke called me back. She would like patient to be transferred to [facility] Emergency Department now. Start low-dose weight based heparin drip without bolus. Keep blood pressure systolic below 180. She states they will consult their vascular team Re-evaluations: 10:00 p.m.. Updated patient and family results and awaiting call back from [facility] tele stroke as they are reviewing CAT scan images for the blockage in the left carotid artery Discussion: Appropriate for transfer for higher level of care needing neurology as well as vascular surgery. Diagnosis: TIA 07/02/25, [id number]. Sign-out previously from Dr. Hernandez, patient accepted for transfer for TIA with critical ICA stenosis on heparin. Goal systolic blood pressure less than 180. Transfer team is here. Case discussed with patient and who expressed understanding of the plan for transfer and need for transfer and heparin and blood pressure control medications. Transfer team needed orders for blood pressure control measures, heart rate 60 noted, we will hold off on further labetalol if needed. Last systolic blood pressure reassuring, gave PRN order for hydralazine 2.5-10 mg as needed to help control systolic blood pressure less than 180, if it is needed during transport. Transfer as planned with [facility] ground ambulance team. Discharge Plan Departure Patient Disposition: [facility] Clinical Impression: Brain TIA Prescriptions: No Action allopurinol 300 mg tablet 300 mg PO DAILY Qty: 90 1RF acetaminophen 325 mg capsule 975 mg PO Q8H PRN clopidogrel 75 mg tablet 75 mg PO DAILY aspirin 81 mg tablet,chewable 81 mg PO DAILY ondansetron HCl 4 mg tablet 4 mg PO Q8H PRN atorvastatin 40 mg tablet 40 mg PO BEDTIME metoprolol succinate 50 mg tablet extended release 24 hr 50 mg PO DAILY Qty: 90 3RF colchicine 0.6 mg capsule 0.6 mg PO DAILY PRN (Reason: Gout flare, d/c as flare resolves) chlorthalidone 25 mg tablet 25 mg PO DAILY Qty: 90 3RF Referrals: Dada Uribe MD [Primary Care Provider, Internal Medicine]
[2025-07-01 19:43] LABS: Troponin I < 0.012 ng/mL (0.01-0.034)
[2025-07-01] MEDS: SODIUM CHLORIDE 0.9% 500 ML 1000 ML IV (21:32)
--- NOTE | 2025-07-01 22:37 | PC.NURSE ---
Patient blood pressure elevated after using bathroom. Provider David made aware. At this time verbal order from provider David to hold heparin drip until blood pressure is a systolic of 180 or below. New orders for blood pressure medication placed by provider David.
[2025-07-01] MEDS: METOPROLOL IR 25 MG TABLET 50 MG PO (22:43)
[2025-07-02] VITALS (14 sets, daily range): BP systolic 148–172; BP diastolic 85–98; PULSE 54–60; RESP 16–20; O2SAT 92–97
[2025-07-02] MEDS: HEPARIN DRIP 25,000 UNIT/500 ML IV.SOLN 35.924 UNIT IV (00:07)
--- NOTE | 2025-07-02 00:18 | PC.NURSE ---
Pt bp is now appropriate to start the heparin, drip started at 0007.
== END 2025-07-02 02:43 | disposition short-term general hospital (02) ==
PROVIDERS: Emergency Provider Emergency Medicine; PCP Internal Medicine
DX: G45.9 Transient cerebral ischemic attack, unspecified (principal); R41.0 Disorientation, unspecified; R47.81 Slurred speech
CPT/HCPCS: 36415; 70450; 70496; 70498; 71045; 80053; 82550; 82962; 84484; 85025; 85610; 85730; 93005; 93010; 96361; 96365; 96366; 99285; J1644; Q9967

== ENCOUNTER → 2025-07-12 07:11 | Outpatient (CLI) | payer MEDICARE, SELFPAY ==
[2025-07-12 08:06] LABS: Blood Urea Nitrogen 13 mg/dL (9-20); Calcium 9.3 mg/dL (8.4-10.2); Carbon Dioxide 24 mmol/L (22-32); Chloride 104 mmol/L (98-107); Estimated Glomerular Filt Rate > 60 mL/min (>60); Glucose 136 mg/dL (70-99); HEMOLYSIS < 15 (0-50); Potassium 4.2 mmol/L (3.4-5.1); Sodium 137 mmol/L (137-145)
[2025-07-12 08:55] LABS: Microalbumi Creatinin Ratio Ur 24.0 ug/mg CR (<30)
[2025-07-12 08:57] LABS: Hemoglobin A1C% w Est Avg Glu 7.2 % (4.0-6.0)
== END ==
PROVIDERS: PCP Internal Medicine; Referring Provider Internal Medicine; Visit Provider Internal Medicine
DX: E11.9 Type 2 diabetes mellitus without complications (principal); Z12.5 Encounter for screening for malignant neoplasm of prostate; I10 Essential (primary) hypertension
CPT/HCPCS: 36415; 80048; 82043; 82570; 83036; G0103

== ENCOUNTER → 2025-08-23 07:10 | Outpatient (CLI) | payer MEDICARE, SELFPAY ==
[2025-08-23 08:49] LABS: Blood Urea Nitrogen 15 mg/dL (9-20); Calcium 9.7 mg/dL (8.4-10.2); Carbon Dioxide 26 mmol/L (22-32); Chloride 95 mmol/L (98-107); Estimated Glomerular Filt Rate > 60 mL/min (>60); Glucose 110 mg/dL (70-99); HEMOLYSIS < 15 (0-50); Potassium 3.6 mmol/L (3.4-5.1); Sodium 137 mmol/L (137-145); Uric Acid 11.0 mg/dL (3.5-8.5)
[2025-08-23 09:50] LABS: Hemoglobin A1C% w Est Avg Glu 6.2 % (4.0-6.0)
== END ==
PROVIDERS: PCP Internal Medicine; Referring Provider Internal Medicine; Visit Provider Internal Medicine
DX: E11.9 Type 2 diabetes mellitus without complications (principal); I10 Essential (primary) hypertension; M1A.09X0 Idiopathic chronic gout, multiple sites, without tophus (tophi)
CPT/HCPCS: 36415; 80048; 83036; 84550; 85651; 86140